=== PATIENT | female | born 1940 | race Caucasian/White ===

== ENCOUNTER 2019-10-12 12:21 | Emergency (ER) | payer MEDICAID ==
[~2019-10-12] VITALS: Ht 157.5 cm; Wt 55.8 kg
[2019-10-12 12:59] LABS: ABSOLUTE BASOPHILS 0.1 thou/uL (0.0-0.2); ABSOLUTE EOSINOPHILS 0.1 thou/uL (0.0-0.7); ABSOLUTE LYMPHOCYTES 1.4 thou/uL (0.8-5.3); ABSOLUTE MONOCYTES 0.4 thou/uL (0.0-1.2); ABSOLUTE NEUTROPHILS 4.2 thou/uL (1.6-8.1); BASOPHILS 1.1 %; EOSINOPHILS 0.9 %; HEMATOCRIT 40.2 % (37.0-47.0); HEMOGLOBIN 13.8 gm/dL (12.0-15.0); LYMPHOCYTES 23.2 %; MCH 32.7 pg (26.0-34.0); MCHC 34.2 g/dL (28.0-37.0); MCV 95.5 fL (80.0-100.0); MONOCYTES 6.7 %; MPV 8.2 fl. (7.2-11.1); NUCLEATED RBCS 0 /100WBC; PLATELET COUNT* 265 thou/uL (150-400); POLYS 68.1 %; RBC 4.21 mil/uL (4.20-5.00); RDW-CV 13.1 % (10.5-14.5); WBC 6.2 thou/uL (4.0-11.0)
[2019-10-12 13:15] LABS: PROTIME 10.2 Seconds (9.20-11.50)
[2019-10-12 13:20] LABS: CALCIUM 9.3 mg/dL (8.5-10.1); CREATININE 0.7 mg/dL (0.6-1.3); POTASSIUM 3.5 mmol/L (3.5-5.1)
[2019-10-12 13:25] LABS: TOTAL BILIRUBIN 0.7 mg/dL (<0.1-1.0); TOTAL PROTEIN 7.6 g/dL (6.4-8.2)
[2019-10-12] MEDS ORDERED: VENTOLIN HFA 1818 GM INH (14:18)
[2019-10-12 14:29] VITALS: BP 144/69
--- NOTE | 2019-10-12 16:20 | EKG ---
[place] [address] ELECTROCARDIOGRAM REPORT Name: CHITRA CASPER Room: [facility]#: [id number] Admission: 10/12/19 Attend Phys: Discharge: 10/12/19 Date of : 40 Date of Service: 10/12/19 1222 Report #: [id number] THIS REPORT FOR: //name// [facility] ED Test Date: 2019-10-12 Test Time: 12:22:16 Pat Name: CHITRA WOODSON Department: Room: Gender: F Promotions Specialist: [place] : 1940 Requested By: Anna Rodriguez Order Number: [id number] MD: Himanshu Blount Measurements Intervals [place] Rate: 71 P: 70 CO: 140 QRS: 95 QRSD: 138 T: 5 QT: 456 QTc: 496 Interpretive Statements Sinus rhythm RBBB and LPFB No previous ECG available for comparison Electronically Signed On 10-12-2019 16:18:16 CDT by Himanshu Blount [email or web address] <ELECTRONICALLY SIGNED> By: Himanshu Blount MD, [facility] 10/12/19 1618 1222 122 Himanshu Blount MD, [facility] /EPI
== END 2019-10-12 14:29 | disposition home or self-care (01) ==
LOC: M.ERS 12:21
PROVIDERS: Nurse Practitioner Family
DX: I45.10 Unspecified right bundle-branch block (principal); R06.00 Dyspnea, unspecified; I10 Essential (primary) hypertension